=== PATIENT | female | born 1930 | race Caucasian/White ===

== ENCOUNTER → 2016-08-07 | Outpatient (CLI) | payer OTHER, MEDICARE, BC ==
[~2016-08-07] MED LIST: ACET-2321 PO; ALBU0.21 IH; AMLO5TAB PO; ASCO-297 PO; BIOF1000 PO; CALC-696 PO; FISH1CAP29 PO; GINK60CA PO; HYDR-2164 PO; LACT1CAP52 PO; NITR0.4T39 SL; POLY17PO3 PO; [UNRECOGNIZED DRUG - OTHER]
--- NOTE | 2016-08-07 15:10 | DI ---
Indication: ITS.REASON: S39.92XA Unspecified injury of lower back, in; S19.9XXA; S29.9XXA PROCEDURE: CT CERVICAL SPINE W/O CONTRAST: Encounter: Initial Comparison: Neck CT dated January 18, 2016 Technique: Axial CT images through the cervical spine were performed without contrast. Coronal and sagittal reformatted images were also obtained. Automated Exposure Control and Iterative Reconstruction dose reducing techniques were utilized. FINDINGS: The alignment of the cervical spine is unchanged. Severe multilevel degenerative changes are present. There is no evidence of acute fracture or subluxation of the cervical spine. The atlantoaxial articulation, dens, and upper cervical spine demonstrate no subluxation. Severe central canal and neural foraminal stenosis at C4-C5, C5-C6 and C6-C7. IMPRESSION: No acute traumatic abnormality of the cervical spine. .
--- NOTE | 2016-08-07 15:26 | DI ---
Indication: ITS.REASON: S39.92XA Unspecified injury of lower back, in; S19.9XXA; S29.9XXA PROCEDURE: CT LUMBAR SPINE W/O CONTRAST: Encounter: Initial Comparison: CT abdomen and pelvis dated December 10, 2013 Technique: Axial noncontrast CT imaging of the lumbar spine was performed with coronal and sagittal two-dimensional reformats. Automated Exposure Control and Iterative Reconstruction dose reducing techniques were utilized. FINDINGS: Severe bony demineralization limiting detection of nondisplaced fractures. 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 No definite acute fractures or traumatic subluxation of the lumbar spine is evident. Severe multilevel degenerative changes with multifocal central canal and neural foraminal stenosis. Severe degenerative facet disease at L4-S1. The paraspinal soft tissues and spinal canal are otherwise unremarkable in appearance. IMPRESSION: No evidence for acute traumatic injury of the lumbar spine. If there is continued pain, MRI or a nuclear medicine bone scan could be helpful for further evaluation. .
--- NOTE | 2016-08-07 15:33 | DI ---
Indication: ITS.REASON: S39.92XA Unspecified injury of lower back, in; S19.9XXA; S29.9XXA PROCEDURE: CT THORACIC SPINE W/O CONTRAST: Encounter: Initial Comparison: CT chest dated January 18, 2016: Technique: Axial noncontrast CT imaging of the thoracic spine was performed with coronal and sagittal two-dimensional reformats. Automated Exposure Control and Iterative Reconstruction dose reducing techniques were utilized. FINDINGS: Severe bony demineralization limiting detection of nondisplaced fractures. Alignment of the thoracic spine is unchanged with severe scoliosis. There are severe multilevel degenerative changes within the intervertebral disk and facet joints in the thoracic spine. No fractures are evident in the thoracic spine. The vertebral bodies and facet joints are normally aligned. Multilevel neural foraminal stenosis. Large hiatal hernia and partially intrathoracic stomach. Old healed fracture deformities of the left ninth and 10th posterior ribs. IMPRESSION: No acute traumatic abnormality of the thoracic spine. If here is continued pain, nuclear medicine bone scan or MRI may be helpful for further evaluation. .
== END ==
LOC: IMA 14:23
PROVIDERS: ATTEND Family Medicine Sports Medicine
DX: M48.02 Spinal stenosis, cervical region (principal); M41.9 Scoliosis, unspecified; M47.896 Other spondylosis, lumbar region; M47.897 Other spondylosis, lumbosacral region; M81.0 Age-related osteoporosis without current pathological fracture; Z87.828 Personal history of other (healed) physical injury and trauma

== ENCOUNTER → 2016-09-25 | Outpatient (CLI) | payer OTHER, MEDICARE, BC ==
--- NOTE | 2016-09-25 09:45 | DI ---
Indication: ITS.REASON: S49.91XA INJURY CT UPPER EXTREMITY RT W/O CONT: Comparison: CT chest 01/18/2016 Technique: Nonenhanced axial imaging through the shoulder region with reformatted coronal and sagittal images and additional 3-D reformatted imaging. Findings: Patient shows advanced degenerative changes about the shoulder joint with marked narrowing of the glenohumeral joint and degenerative changes about the AC joint. Cystic degeneration and sclerotic changes are present. The joint spaces markedly narrowed. Marked cystic change is appreciated involving both the humeral head as well as a degree glenoid portion of the scapula. Small calcifications are identified in the adjacent periarticular soft tissues. This could represent calcium hydroxyapatite deposition disease. On the reformatted images couple subtle lucencies extending more toward the subscapular portion of the glenohumeral joint although significant displaced fractures are not identified. The acromioclavicular joint is also markedly degenerated. Impression: 1. Marked degenerative changes involving both the AC joint and the glenohumeral joint with combination of sclerotic and cystic changes involving both the humeral head and the glenoid region of the scapula. The patient also demonstrates marked degenerative changes in the AC joint. 2. On reformatted images there are couple subtle areas of lucency extending into the glenoid portion of the scapula. I could not unequivocally excluded some nondisplaced fracture injury however, findings probably just represent marked degenerative changes. 3. Periarticular soft tissue calcifications could indicate calcific tendinitis and/or calcium hydroxyapatite deposition disease. .
== END ==
LOC: IMA 08:56
PROVIDERS: ATTEND Family Medicine Sports Medicine
DX: S49.91XA Unspecified injury of right shoulder and upper arm, initial encounter (principal); M19.011 Primary osteoarthritis, right shoulder; R93.7 Abnormal findings on diagnostic imaging of other parts of musculoskeletal system